=== PATIENT | female | born 1945 ===

== ENCOUNTER 2023-09-10 06:36 | Day surgery (SDC) | payer MEDICARE, OTHER ==
[~2023-09-10 06:36] MED LIST: ACETYLCHOLINE CHLORIDE 1% OPHT 1 EA KIT ONE; ATROPINE SULFATE 1% OPHT DROP 2 ML ONE; BALANCED SALT IRRIG SOLN COMB2 15 ML IRRIG.SOLN ONE; BUPIVACAINE PF 0.5% 30 ML VIAL ONE; HYALURONATE SODIUM 12.8 MG/0.8 ML DISP.SYRIN ONE; HYALURONATE SODIUM 8.5 MG/0.85 ML ONE; LIDOCAINE-MPF 2% 5 ML VIAL ONE; MOXIFLOXACIN HCL 3 ML OPHT DROPS ONE; NEO/POLYMYX B/DEXAME OPHT OINT 3.5 GM TUBE ONE; PHENYLEPHRINE 10% OPHT DROP 5 ML BOTTLE ONE; TETRACAINE HCL 0.5% OPHT DROP 2 ML BOTTLE ONE; TIMOLOL MALEATE 0.5% OPHT DROP 5 ML BOTTLE ONE; TRYPAN BLUE 0.5 ML DISP.SYRIN ONE
[2023-09-10] MEDS ORDERED: EPINEPHRINE-PF 1:1000 1 MG/ML AMPUL/VIAL ONE (06:37)
[2023-09-10] MEDS ORDERED: PHENYLEPHRINE 2.5% OPHT DROP 2 ML BOTTLE ONE (06:47)
[2023-09-10] MEDS ORDERED: CYCLOPENTOLATE 1% OPHT DROP 2 ML BOTTLE ONE (06:47)
[2023-09-10] MEDS ORDERED: CIPROFLOXACIN 0.3% OPHT DROP 2.5 ML BOTTLE ONE (06:47)
[2023-09-10] MEDS ORDERED: KETOROLAC 0.5% OPHT DROP 3 ML BOTTLE ONE (06:47)
[2023-09-10] MEDS ORDERED: TROPICAMIDE 1% OPHT DROP 3 ML BOTTLE ONE (06:47)
[2023-09-10] MEDS ORDERED: BALANCED SALT IRRIG SOLN COMB1 500 ML, EPINEPHRINE-PF 1:1000 0.5 MG IO ONE (07:00)
[2023-09-10 07:20] LABS: *BILIRUBIN,URIN NEGATIVE (NEGATIVE); *BLOOD, URINE NEGATIVE (NEGATIVE); *CLARITY,URINE CLEAR (CLEAR); *COLOR,URINE YELLOW (YELLOW); *KETONES,URINE NEGATIVE (NEGATIVE); *PROTEIN,URINE NEGATIVE (NEGATIVE); *UROBILINOGEN,URINE 0.2 E.U./dl (NORMAL); LEUKOCYTE ESTERASE ,URINE 1+ (NEGATIVE); NITRITE, URINE NEGATIVE (NEGATIVE); PH,URINE 6.5 (5.0-8.0); UGLUCOSE NEGATIVE (NEGATIVE)
[2023-09-10] MEDS ORDERED: FENTANYL CITRATE 100 MCG/2 ML AMPUL ONE (08:06)
[2023-09-10] MEDS ORDERED: PROPOFOL 200 MG/20 ML BOTTLE ONE (09:20)
[2023-09-10 09:26] LABS: BACTERIA,URINE FEW /HPF (NONE SEEN); RBC,URINE 0-3 /HPF (0-3); SQUAMOUS EPITHELIAL CELL,UR MODERATE /HPF (NONE SEEN)
[2023-09-10 09:53] VITALS: TEMP 97.5
== END 2023-09-10 10:30 | disposition home or self-care (01) ==
LOC: DS 06:36
PROVIDERS: ATTEND Ophthalmology
DX: E11.36 Type 2 diabetes mellitus with diabetic cataract (principal); H25.89 Other age-related cataract; I10 Essential (primary) hypertension; J44.9 Chronic obstructive pulmonary disease, unspecified; M19.90 Unspecified osteoarthritis, unspecified site; I25.10 Atherosclerotic heart disease of native coronary artery without angina pectoris; I11.9 Hypertensive heart disease without heart failure; M81.0 Age-related osteoporosis without current pathological fracture; Z87.440 Personal history of urinary (tract) infections; Z79.899 Other long term (current) drug therapy; Z98.890 Other specified postprocedural states; Z88.5 Allergy status to narcotic agent; Z88.8 Allergy status to other drugs, medicaments and biological substances
CPT/HCPCS: 66984; 71045; 81001; 82962; 87086; J0171; J3010; J3490; J7040; J7321; Q9968; V2632; A4663